=== PATIENT | female | born 1995 | race Caucasian/White ===

== ENCOUNTER 2024-07-03 09:44 | Emergency (ER) | payer OTHER, SELFPAY ==
[2024-07-03 09:55] VITALS: BP 121/83
[2024-07-03 10:18] LABS: % Basophils 1.1 % (0-2); % Eosinophils 0.5 % (0-6); % Immature Granulocytes 0.3 % (0-0.5); % Lymphocytes 41.5 % (20.5-51.1); % Monocytes 12.5 % (1.7-9.3); % Neutrophils 44.1 % (42.2-75.2); Absolute Lymphocytes 1.6 10^3/uL (1.2-3.4); Absolute Monocytes 0.5 10^3/uL (0.1-0.6); Absolute Neutrophils 1.7 10^3/uL (1.4-6.5); Hematocrit 38.8 % (37.0-47.0); Hemoglobin 13.7 g/dL (12.0-16.0); Mean Corp Hgb Conc. 35.3 g/dL (33.0-37.0); Mean Corpuscular Hgb 30.1 pg (27.0-31.0); Mean Corpuscular Volume 85.3 fL (81.0-99.0); Mean Platelet Volume 10.7 fL (7.4-10.4); Nucleated Red Blood Cells % 0 %; Platelet Count 325 10^3/uL (130-400); Red Blood Cell Count 4.55 10^6/uL (4.20-5.40); Red Cell Dist. Width 12.1 % (11.5-14.5); White Blood Cell Count 3.8 10^3/uL (4.8-10.8)
[2024-07-03 10:32] LABS: ALT (SGPT) 24 U/L (0-35); AST (SGOT) 30 U/L (14-36); Albumin 4.6 g/dl (3.5-5.0); Alkaline Phosphatase 60 U/L (38-126); Blood Urea Nitrogen 9 mg/dl (7-17); Calcium 10.4 mg/dl (8.4-10.2); Carbon Dioxide 22 mmol/L (22-30); Chloride 107 mmol/L (98-107); Glucose 98 mg/dl (70-99); Potassium 4.5 mmol/L (3.5-5.1); Sodium 140 mmol/L (135-145); Total Bilirubin 0.9 mg/dl (0.2-1.3); Total Protein 7.7 g/dl (6.3-8.2); eGFR > 60.00
[2024-07-03 10:34] VITALS: BMI 23.8
[2024-07-03 10:52] LABS: Troponin I < 0.012 ng/ml
[2024-07-03 11:01] LABS: HCG, Serum Qualitative Screen Negative
[2024-07-03 11:11] VITALS: BP 122/76
[2024-07-03 11:41] LABS: COVID-19 Antigen Negative (Negative)
--- NOTE | 2024-07-03 12:31 | ED.GENMED ---
History of Present Illness
General
Chief Complaint: Chest Pain
Time Seen by Provider: 07/03/24 10:25
History of Present Illness
History of Present Illness:
29-year-old female with no significant past medical history presents to the emergency department for evaluation of chest pain that began yesterday morning and persisted throughout the day. States he feels hard to breathe. She notes this morning
she awoke with tingling in the arms and legs. Denies any fevers or chills. Reports exertional dyspnea as well. No recent fevers or chest pain. She is a frequent smoker, uses nicotine and marijuana vapes.
Past History
Past History
ED Past Medical History: None; Negative Asthma, HTN, Hypercholesterolemia or NIDDM
ED Past Surgical History: Gynecological (Elective ) and Other (Oral surgery, myringotomy tubes)
Social History
Tobacco: Former smoker
Alcohol: None
Drug: None
Personal: Single
Living: with family
Employment: Employed
Review of Systems
Review of Systems
Allergies reviewed?: Yes
All Other Systems: ROS reviewed and negative except as documented in HPI and ROS
Phy Exam
Physical Exam
Physical Exam:
GEN: Well appearing, NAD, WDWN
HEENT: Oral mucosa moist, no scleral icterus
Cardiac: Regular rate and rhythm, no murmurs
Lung: No respiratory distress, no tachypnea, lungs clear to auscultation bilaterally
MSK: No gross deformity or injuries
Skin: Good color, no pallor or jaundice, no rashes
Neuro: AO x3, moves all extremities freely
Psych: Calm, cooperative
Scores
Heart Score for Chest Pain Patients
STEMI patient?: No
History: Slightly or Non-Suspicious
ECG: Normal
Age: </= 45 years
Risk Factors: 1 or 2 Risk Factors
Troponin: </= Normal Limit
Heart Score for Chest Pain Patients: 1
Heart Score Risk: 2.5% MACE over next 6 weeks
Course
Orders/Labs/Results
Orders:
Orders
07/03/24 09:46
Electrocardiogram (*1) Urgent
Reason for Study: Chest Pain
EKG- Treatment ONCE
Test Result ONCE
07/03/24 10:06
Complete Blood Count/With Diff Urgent
Comprehensive Metabolic Panel Urgent
D-Dimer Urgent
HCG, Serum Qualitative Screen Urgent
Troponin I Urgent
07/03/24 10:44
CR Chest - 2 Views Urgent
Comment:
Reason For Exam: SOB
07/03/24 11:11
COVID-19 Antigen Urgent
Source: Nasal Swab
Abnormal Lab Results
07/03/24
10:06
WBC 3.8 L 10^3/uL
(4.8-10.8)
MPV 10.7 H fL
(7.4-10.4)
Monocytes % 12.5 H %
(1.7-9.3)
Calcium 10.4 H mg/dl
(8.4-10.2)
07/03/24 10:06
07/03/24 10:06
Vital Signs
Initial and Last Documented VS:
Initial Vital Signs
Temp Pulse Resp BP Pulse Ox
97.9 F 93 18 121/83 100
07/03/24 09:55 07/03/24 09:55 07/03/24 09:55 07/03/24 09:55 07/03/24 09:55
Last Documented Vital Signs
Temp Pulse Resp BP Pulse Ox
97.9 F 69 20 122/76 100
07/03/24 09:55 07/03/24 11:30 07/03/24 11:30 07/03/24 11:11 07/03/24 09:55
MDM/Problems Addressed
MDM/Problems Addressed:
EKG is baseline for her, she has likely juvenile T wave inversions in the anterior leads that are similar to 2018. Workup was otherwise unremarkable. Mild leukopenia may suggest viral etiology. D-dimer negative rules out PE.
*Critical Care Note
Total Time (30-74mins, 75-104mins- exclusive of procedures): Not Applicable
ED Attending Note
-
Portions of this chart may have been created with voice recognition software.� Occasional wrong word or��sound alike� substitutions may have occurred due to the inherent limitations of voice recognition software.
Discharge Plan
Departure
Patient Disposition: Home (Routine Discharge)
Date of Disposition: 07/03/24
Time of Disposition: 12:31
Patient with high blood pressure during this ER visit?: No
Discharge Problem:
Atypical chest pain
Instructions: Chest Pain That Is Not Caused by the Heart (DC)
Prescriptions:
No Action
Vitamins
1 tab PO DAILY
ibuprofen 600 MG tablet
600 mg PO Q6HPRN PRN (Reason: cramps) Qty: 30 0RF
Referrals:
Nathan Colmenares DO [Family Provider] -
Interventions
Interventions:
*Risk Screen - Suicide Last Done: 07/03/24 09:55
*General Assessment Last Done: 07/03/24 09:55
*Neglect/Abuse Screening Last Done: 07/03/24 10:40
*ED- Fall Risk Assessment Last Done: 07/03/24 10:34
*ED COVID-19 Vaccine History Last Done: 07/03/24 10:34
*Nursing Disposition Last Done: 07/03/24 13:16
ED- Cardiac Assessment Last Done: 07/03/24 10:34
Discharge Date and Time
Discharge Date/Time: 07/03/24 13:16
Print Language: ANGOLAN
== END 2024-07-03 13:16 | disposition home or self-care (01) ==
LOC: EMR 09:44
PROVIDERS: Physician Assistant; EMERGENCY PHYSICIAN Emergency Medicine; FAMILY PHYSICIAN Family Medicine
DX: R07.89 Other chest pain (principal); D72.819 Decreased white blood cell count, unspecified; R06.09 Other forms of dyspnea; F17.290 Nicotine dependence, other tobacco product, uncomplicated; F12.90 Cannabis use, unspecified, uncomplicated; Z11.52 Encounter for screening for COVID-19
CPT/HCPCS: 99285; 71046; 80053; 84484; 84703; 85025; 85379; 87811; 93005